=== PATIENT | female | born 1965 | race Caucasian/White ===

== ENCOUNTER 2025-06-08 18:45 | Emergency (ER) | payer SELFPAY ==
[~2025-06-08 18:45] MED LIST: Iopamidol 370 76% 100 ML VIAL ONE
[2025-06-08] MEDS ORDERED: Nitroglycerin 0.4 MG TAB 1 EACH ONE (19:02)
[2025-06-08] MEDS ORDERED: Metoprolol Tartrate 5 MG (5 mL) VIAL ONE (19:02)
[2025-06-08] MEDS ORDERED: Ondansetron PF 4 MG/2 ML Vial ONE (19:02)
[2025-06-08] MEDS ORDERED: Aspirin Chewable 81 MG TAB ONE (19:03)
[2025-06-08 19:41] LABS: #Basophils 0.2 thou/uL (0.0-0.2); #Eosinophils 0.2 thou/uL (0.0-0.7); #Lymphocytes 2.7 thou/uL (1.20-3.40); #Monocytes 0.7 thou/uL (0.11-0.59); #Neutrophils 6.5 thou/uL (1.40-6.50); %Basophils 1.5 % (0.0-1.0); %Eosinophils 2.4 % (0.0-10.0); %Lymphocytes 25.9 % (21.0-51.0); %Monocytes 6.8 % (0.0-10.0); %Neutrophils 63.5 % (42.0-75.0); Hematocrit 42.6 % (36.0-47.0); Hemoglobin 15.4 g/dL (12.0-16.0); Mean Corpuscular Hemoglobin 29.0 pg (27.0-31.0); Mean Corpuscular Volume 80.4 fl (78.0-98.0); Platelet Count 424 10x3/uL (130-400); Red Blood Cell (RBC) Count 5.30 mill/uL (4.20-5.40); White Blood Cell (WBC) Count 10.3 10x3/uL (4.8-10.8)
[2025-06-08 19:57] LABS: ALT (SGPT) 15 U/L (Less than 34); AST (SGOT) 22 U/L (11-34); Albumin 4.1 g/dL (3.1-4.5); Alkaline Phosphatase 73 U/L (40-110); Anion Gap 18 mmol/L (10-20); BUN (Urea Nitrogen) 20 mg/dL (9.8-20.1); Bilirubin, Total 0.2 mg/dL (0.3-1.2); Calc. Creatinine Clearance 0 mL/min (70-130); Calcium 9.1 mg/dL (7.8-10.44); Carbon Dioxide 21 mmol/L (22-29); Chloride 104 mmol/L (98-107); Globulin 3.5 g/dL (2.4-3.5); Glucose 93 mg/dL (70-105); Potassium 3.7 mmol/L (3.5-5.1); Sodium 139 mmol/L (136-145)
[2025-06-08 20:03] LABS: Troponin I Less than 0.010 ng/mL (< 0.028)
[2025-06-08] MEDS ORDERED: predniSONE 20 MG TAB ONE (21:28)
== END 2025-06-08 21:38 | disposition home or self-care (01) ==
LOC: BURERS 18:45
DX: M94.0 Chondrocostal junction syndrome [Tietze] (principal); I10 Essential (primary) hypertension; F17.210 Nicotine dependence, cigarettes, uncomplicated
CPT/HCPCS: 71045; 71275; 80053; 83880; 84484; 85025; 85379; 93005; 94760; 96374; 96375; J7512; Q9967

== ENCOUNTER 2025-06-16 13:15 | Emergency (ER) | payer SELFPAY ==
[2025-06-16 13:43] LABS: CAUTI Indications for Culture Dysuria,urgency,freq; Glucose, Urine (Dipstick) Negative (Negative); Leukocyte Negative (Negative); Protein, Urine (Dipstick) Negative (Neg-Trace); RBC/HPF 0-3 HPF (0-3); Specific Gravity, Urine 1.015 (1.005-1.030); WBC/HPF 0-3 HPF (0-3)
[2025-06-16 13:44] LABS: Bacteria/HPF Rare-Few HPF (None Seen)
[2025-06-16 13:45] LABS: Urine Culture Reflex No No
[2025-06-16] MEDS ORDERED: predniSONE 20 MG TAB ONE (14:25)
== END 2025-06-16 15:37 | disposition home or self-care (01) ==
LOC: BURERS 13:15
DX: N76.0 Acute vaginitis (principal); I10 Essential (primary) hypertension; F17.210 Nicotine dependence, cigarettes, uncomplicated
CPT/HCPCS: 74176; 81001; 96372; J1885; J7512; Q0162